=== PATIENT | female | born 1990 | race Caucasian/White ===

== ENCOUNTER 2019-12-19 09:29 | Outpatient (REF) | payer BC, SELFPAY ==
[2019-12-19 19:47] LABS: Abs Immature Grans 0.01 k/cumm (0.0-0.09); Absolute Basophil Count 0.01 k/cumm (0.0-0.2); Absolute Eosinophil Count 0.04 k/cumm (0.0-0.7); Absolute Lymphocyte Count 2.13 k/cumm (1.2-3.4); Absolute Monocyte Count 0.55 k/cumm (0.11-0.7); Absolute Neutrophil Count 4.32 k/cumm (1.2-6.7); Basophils % 0.1; Eosinophils % 0.6; HCT 38.2 % (36.0-46.0); HGB 12.7 g/dL (12.0-15.5); Immature Grans % 0.1 %; Lymphocytes % 30.2; Mean Corp. HGB Concentration 33.2 g/dL (32.0-36.0); Mean Corpuscular Hemoglobin 30.5 pg (27.0-33.0); Mean Corpuscular Volume 91.6 fL (80-95); Mean Platelet Volume 11.2 fL (8.0-11.0); Monocytes % 7.8; Neutrophils % 61.2; Platelet Count 234 x1000/uL (130-400); RBC 4.17 m/cumm (4.00-5.20); RBC Distribution Width 11.9 % (11.7-14.6); White Blood Cell Count 7.06 k/cumm (4.4-10.8)
[2019-12-19 20:08] LABS: ALT 14 U/L (14-59); AST 17 U/L (15-37); Albumin 3.8 g/dL (3.4-5.0); Alkaline Phosphatase 52 U/L (46-116); Anion Gap 10.1 mmol/L (3-11); BUN 15 mg/dL (7-18); Bilirubin, Total 0.5 mg/dL (0.2-1.0); CO2 25.9 mmol/L (21.0-32.0); CREATININE 0.71 mg/dL (0.55-1.02); Calcium 9.1 mg/dL (8.5-10.1); Calculated LDL 113 mg/dL (<100); Chloride 103 mmol/L (98-107); Cholesterol 184 mg/dL (<200); Glucose 81 mg/dL (74-106); HDL Cholesterol 61 mg/dL (40-60); Potassium 3.9 mmol/L (3.5-5.1); Sodium 139 mmol/L (136-145); TSH (W/Ref FT4) 1.72 uIU/mL (0.36-3.74); Total Protein 6.8 g/dL (6.4-8.2); Triglyceride 51 mg/dL (<150)
[2019-12-21 04:40] LABS: Vitamin D 25 Total 37.4 ng/ml (30-100)
== END 2019-12-19 09:49 ==
LOC: NCHCN 09:29
PROVIDERS: Visit Provider Physician Assistant
DX: Z00.00 Encounter for general adult medical examination without abnormal findings (principal); F43.21 Adjustment disorder with depressed mood; Z13.29 Encounter for screening for other suspected endocrine disorder; Z13.1 Encounter for screening for diabetes mellitus; Z13.220 Encounter for screening for lipoid disorders; Z13.21 Encounter for screening for nutritional disorder
CPT/HCPCS: 80053; 80061; 82306; 84443; 85025

== ENCOUNTER 2020-12-03 12:21 | Outpatient (REF) | payer OTHER, SELFPAY ==
[2020-12-06 14:54] LABS: Calprotectin 675 mcg/g
== END 2020-12-03 12:22 | disposition home or self-care (01) ==
LOC: LBN 12:21
PROVIDERS: PCP Naturopath; Visit Provider Naturopath
DX: R19.7 Diarrhea, unspecified (principal); Z87.19 Personal history of other diseases of the digestive system
CPT/HCPCS: 83630; 83993

== ENCOUNTER 2020-12-04 02:22 | Outpatient (CLI) | payer OTHER, SELFPAY ==
[2020-12-09 14:24] LABS: IgA 204 mg/dL (85-499); Interpretation (See Note); Tissue Transglutaminase IgA <1.2 U/mL (<4.0)
[2020-12-10 12:53] LABS: Whey IgG 11.9 mcg/mL
[2020-12-17 11:07] LABS: Misc Referral (MAYO) See Comments
== END 2020-12-04 02:23 | disposition home or self-care (01) ==
PROVIDERS: PCP Naturopath; Visit Provider Naturopath
DX: R19.7 Diarrhea, unspecified (principal)
CPT/HCPCS: 36415; 82784; 83516; 86001; 86003

== ENCOUNTER 2020-12-27 04:07 | Outpatient (CLI) | payer OTHER, SELFPAY ==
[2020-12-27 11:04] LABS: Abs Immature Grans 0.02 10^3/uL (0.0-0.06); Absolute Basophil Count 0.02 10^3/uL (0.0-0.2); Absolute Eosinophil Count 0.15 10^3/uL (0.0-0.7); Absolute Lymphocyte Count 1.75 10^3/uL (1.2-3.4); Absolute Monocyte Count 0.37 10^3/uL (0.1-0.8); Absolute Neutrophil Count 5.46 10^3/uL (1.2-6.7); Basophils % 0.3; Eosinophils % 1.9; HCT 40.5 % (36.0-46.0); HGB 13.5 g/dL (11.2-15.7); Immature Grans % 0.3; Lymphocytes % 22.5; MCH 30.5 pg (27.0-33.0); MCHC 33.3 % (32.0-36.0); MCV 91.6 fL (80-95); MPV 9.2 fL (8.0-11.0); Monocytes % 4.8; Neutrophils % 70.2; Nucleated RBC 0 %; Platelet Count 248 10^3/uL (130-400); RBC 4.42 10^6/uL (3.93-5.22); RDW 10.9 % (11.7-14.6); WBC 7.77 10^3/uL (4.4-10.8)
[2020-12-27 12:37] LABS: ALT 15 U/L (14-59); AST 13 U/L (15-37); Albumin 3.8 g/dL (3.4-5.0); Alkaline Phosphatase 63 U/L (46-116); Anion Gap 7.8 mmol/L (3-11); BUN 11 mg/dL (7-18); Bilirubin, Total 0.4 mg/dL (0.2-1.0); C-Reactive Protein 1.32 mg/dL (0.0-0.3); CO2 28.2 mmol/L (21.0-32.0); CREATININE 0.7 mg/dL (0.55-1.02); Calcium 9.3 mg/dL (8.5-10.1); Chloride 103 mmol/L (98-107); Ferritin 46 ng/mL (8-252); Glucose 96 mg/dL (74-106); Potassium 4.6 mmol/L (3.5-5.1); Sodium 139 mmol/L (136-145); Total Protein 7.5 g/dL (6.4-8.2)
[2020-12-27 18:05] LABS: Iron 106 ug/dL (50-170); Total Iron Binding Capacity 358 ug/dL (250-450); Transferrin Sat 30 % (15-50)
[2021-01-01 15:24] LABS: Egg Yolk IgG <2.0 mcg/mL
== END 2020-12-27 04:08 | disposition home or self-care (01) ==
LOC: LBO 04:08
PROVIDERS: PCP Naturopath; Visit Provider Naturopath
DX: K92.1 Melena (principal); Z91.018 Allergy to other foods
CPT/HCPCS: 36415; 80053; 86001; 82728; 83540; 83550; 85025; 86140

== ENCOUNTER 2021-01-23 04:21 | Outpatient (CLI) | payer OTHER, SELFPAY ==
[2021-01-23 10:39] LABS: Kit/Specimen SENT
== END 2021-01-23 04:22 | disposition home or self-care (01) ==
LOC: LBO 04:23
PROVIDERS: PCP Naturopath; Visit Provider Naturopath
DX: Z01.89 Encounter for other specified special examinations (principal)
CPT/HCPCS: 36415